=== PATIENT | female | born 1950 | race Asian ===

== ENCOUNTER 2017-03-30 22:22 | Emergency (ER) | payer BC ==
[~2017-03-30] VITALS: Ht 154.9 cm; Wt 68.0 kg
[2017-03-30 22:25] VITALS: BP 157/98
[2017-03-30] MEDS ORDERED: NKM (22:25)
[2017-03-30] MEDS ORDERED: Morphine Sulfate 4mg/ml Inj IM ONE (22:30)
--- NOTE | 2017-03-30 22:32 | Emergency Room Report ---
History of Present Illness General Chief Complaint: Pain Source: Patient Present Illness HPI Is a 66-year-old female who presents with chief complaint of back pain. She was playing ping-pong at the [employer]. She went to swing at the ball and this can and fell forward. She started her back. Complaining of severe lower back pain. Pain is 9/10. Worse with movement. No loss of consciousness. No dizziness. Denies any other complaint. No incontinence of bowel or urine. No numbness. Allergies: Coded Allergies: No Known Allergies (Unverified , 03/30/17) Patient History Past Medical History: see triage record, old chart reviewed Past Surgical History: none Pertinent Family History: none Social History: Denies: smoking Now: No Immunizations: other Reviewed Nursing Documentation: PMH: Agreed, PSxH: Agreed Nursing Documentation-PMH Hx Hypertension: Yes - High cholesterol Review of Systems Eye: Denies: eye pain, blurred vision ENT: Denies: ear pain, nose congestion, throat swelling Respiratory: Denies: cough, shortness of breath Cardiovascular: Denies: chest pain, palpitations Gastrointestinal: Denies: abdominal pain, diarrhea, nausea, vomiting Musculoskeletal: Reports: back pain, Denies: joint pain Skin: Denies: rash Neurological: Denies: headache, numbness Endocrine: Denies: increased thirst, increased urine Hematologic/Lymphatic: Denies: easy bruising All Other Systems: negative except mentioned in HPI Physical Exam Vital Signs Date Time Temp Pulse Resp B/P (MAP) Pulse Ox O2 Delivery O2 Flow Rate FiO2 03/30/17 22:23 97.9 89 14 157/98 99 Room Air vitals with high blood pressure Sp02 EP Interpretation: reviewed, normal General Appearance: well appearing, no apparent distress, alert Head: normocephalic, atraumatic Eyes: bilateral eye PERRL, bilateral eye EOMI ENT: hearing grossly normal, normal pharynx Neck: full range of motion, supple, no meningismus Respiratory: chest non-tender, lungs clear, normal breath sounds Cardiovascular #1: regular rate, rhythm, no murmur Gastrointestinal: normal bowel sounds, non tender, no mass, no organomegaly, no bruit, non-distended Musculoskeletal: back normal, normal range of motion, other - Diffuse lower Lumbar tenderness Psychiatric: mood/affect normal Skin: warm/dry Medical Decision Making Diagnostic Impression: Primary Impression: Compression fracture of twelfth thoracic vertebra Additional Impression: Low back pain Qualified Codes: M54.5 - Low back pain ER Course Patient with minor injury with back pain. CT scan showed a compression fracture which is acute versus recent. No neurological deficit. Pain is well- controlled we will discharge home. CT/MRI/US Diagnostic Results CT/MRI/US Diagnostic Results : Imaging Test Ordered: Lumbar spine CT scan Impression Read by radiologist. Mild T12 compression fracture. Last Vital Signs Date Time Temp Pulse Resp B/P (MAP) Pulse Ox O2 Delivery O2 Flow Rate FiO2 03/30/17 22:23 97.9 89 14 157/98 99 Room Air Status: improved Disposition: HOME, SELF-CARE Condition: Stable Scripts Hydrocodone/Acetaminophen 5-325* (HYDROCODONE/ACETAMINOPHEN 5-325*) 1 Each Tablet 1 TAB ORAL Q6H Y for For Pain, #30 TAB 0 Refills Prov: PHUC GARNER M.D. 03/31/17 Additional Instructions: Followup with your DrKojo in 2-5 days. No heavy lifting. Return if symptom worsen the PHUC GARNER M.D. Mar 30, 2017 22:32
[2017-03-31] MEDS ORDERED: HYDROCODON-ACE1 EA15 ORAL (00:42)
[2017-03-31 01:02] VITALS: BP 142/88
--- NOTE | 2017-03-31 12:11 | Diagnostic Imaging Report ---
Indication: Back pain Technique: Continuous helical transaxial imaging of the lumbar spine was obtained from the lung bases to the pubic symphysis. No IV contrast was administered. Coronal 2-D reformats were also obtained. Study obtained in a Siemens sensation [address] Total Dose length Product (DLP): [address] Dose Index Volume (CTDIvol): 14 mGy Comparison: None Findings: There is a mild fracture of the T12 vertebra with slight buckling of anterior cortex and about 30% loss of height. The finding is suspicious for acute to subacute compression fracture. The bones are osteopenic. There is a hemangioma involving L2 vertebra. Mild endplate spurs and a generalized mild hypertrophy of the lumbar facets noted at multiple levels. Aorta is mildly calcified. Impression: Acute to subacute fracture of the T12 vertebra with 30% loss of height. There are osteoporosis Mild degenerative changes as described above. L2 vertebral hemangioma Atherosclerotic vascular disease [facility] has communicated the preliminary results to the Emergency Department. Their findings are largely concordant with this report. The CT scanner at [facility] is accredited by the [employer] and the scans are performed using dose optimization techniques as appropriate to a performed exam including Automatic Exposure control.
== END 2017-03-31 01:00 | disposition home or self-care (01) ==
LOC: EDBD 22:22 → EMR 22:36
DX: S22.080A Wedge compression fracture of T11-T12 vertebra, initial encounter for closed fracture (principal); W19.XXXA Unspecified fall, initial encounter; Y93.9 Activity, unspecified; Y92.29 Other specified public building as the place of occurrence of the external cause; I10 Essential (primary) hypertension; M81.0 Age-related osteoporosis without current pathological fracture; I70.90 Unspecified atherosclerosis; D18.09 Hemangioma of other sites
CPT/HCPCS: 72131; 96372; 99284; J2270